=== PATIENT | female | born 1990 | race Hispanic/Latino ===

== ENCOUNTER 2018-06-28 19:09 | Emergency (ER) | payer OTHER, SELFPAY ==
[2018-06-28] MEDS ORDERED: Ketorolac Tromethamine 30 MG/ML VIAL ONE (19:34)
[2018-06-28] MEDS ORDERED: Diazepam 5 MG TAB ONE (19:34)
== END 2018-06-28 20:17 | disposition home or self-care (01) ==
LOC: ERS 19:09
DX: M54.41 Lumbago with sciatica, right side (principal)
CPT/HCPCS: 96372; J1885